=== PATIENT | female | born 1990 | race Caucasian/White ===

== ENCOUNTER 2018-06-02 21:19 | Inpatient (IN) | payer MEDICAID, SELFPAY ==
[2018-06-02 21:59] LABS: HCT 38.3 % (36.0-46.0); HGB 12.7 g/dL (12.0-15.5); Mean Corp. HGB Concentration 33.2 g/dL (32.0-36.0); Mean Corpuscular Hemoglobin 28.7 pg (27.0-33.0); Mean Corpuscular Volume 86.7 fL (80-95); Mean Platelet Volume 11.8 fL (8.0-11.0); Platelet Count 159 x1000/uL (130-400); RBC 4.42 m/cumm (4.00-5.20); RBC Distribution Width 12.2 % (11.7-14.6); White Blood Cell Count 8.49 k/cumm (4.4-10.8)
[2018-06-03] MEDS: AMPICILLIN SODIUM 2 GM in Normal Saline 100 ML IVPB ×2 (13:00→19:00)
[2018-06-04] MEDS: Acetaminophen 325 MG TAB 650 MG PO ×4 (02:34→23:45)
[2018-06-04] MEDS: Ibuprofen 600 MG TAB PO ×4 (02:34→23:46)
[2018-06-04] MEDS: Hamamelis Leaf/Glycerin 100 EACH BOX PR (08:28)
[2018-06-05 07:27] LABS: HCT 28.7 % (36.0-46.0); HGB 9.2 g/dL (12.0-15.5); Mean Corp. HGB Concentration 32.1 g/dL (32.0-36.0); Mean Corpuscular Hemoglobin 28.4 pg (27.0-33.0); Mean Corpuscular Volume 88.6 fL (80-95); Mean Platelet Volume 11.4 fL (8.0-11.0); Platelet Count 141 x1000/uL (130-400); RBC 3.24 m/cumm (4.00-5.20); RBC Distribution Width 12.3 % (11.7-14.6); White Blood Cell Count 8.05 k/cumm (4.4-10.8)
[2018-06-05] MEDS: Acetaminophen 325 MG TAB 650 MG PO (08:17)
[2018-06-05] MEDS: Ibuprofen 600 MG TAB PO (08:18)
[2018-06-05] MEDS: Docusate Sodium 100 MG CAP PO (13:20)
== END 2018-06-05 14:30 | disposition home or self-care (01) | DRG 807 ==
PROVIDERS: Admitting Provider Family Medicine; PCP Family Medicine; Visit Provider Family Medicine
DX: O70.1 Second degree perineal laceration during delivery (principal); Z37.0 Single live birth; O42.12 Full-term premature rupture of membranes, onset of labor more than 24 hours following rupture; Z3A.37 37 weeks gestation of pregnancy; O92.20 Unspecified disorder of breast associated with pregnancy and the puerperium
CPT/HCPCS: 36415; 85027; 86850; 86900; 86901; 59200; J0290; J1580; J3490

== ENCOUNTER 2020-04-21 02:17 | Inpatient (IN) | payer MEDICAID, SELFPAY ==
[2020-04-21] VITALS (13 sets, daily range): BP systolic 114–141; BP diastolic 64–83; PULSE 78–98; RESP 16–20; TEMP 36.5–36.8
[2020-04-21 04:24] LABS: Source Nasopharynx
[2020-04-21 05:02] LABS: Influenza A PCR Negative (Negative); Influenza B PCR Negative (Negative); RSV PCR Negative (Negative)
[2020-04-21 05:18] LABS: COVID-19 PCR Negative (Negative)
--- NOTE | 2020-04-21 07:33 | HPE_ITS ---
Date of service: 04/21/20 Time of Service: 07:33 Assessment and Plan Assessment and plan (1) and not yet delivered in third trimester: Status: Acute Assessment and plan: 29 yo at 41 weeks here in active labor. SROM possibly at 9:30 last night but still with bulging bag. Making steady progress and tolerating labor well. NST cat 1. GBS negative, Rh pos. Plan: - intermittent monitoring - anticipate (2) Anemia affecting in third trimester: Status: Acute Assessment and plan: Hemoglobin 9.8 on admission. Will get H/H. Monitor blood loss after delivery closely. OB-HPI Labor/Delivery History of Present Illness Reason for Visit: LABOR Chief Complaint: Uterine Contractions. BIRD Calculator Estimated Delivery Date Method Current WG Current Estimate 04/14/20 LMP (Certain) 41w 0d Other Estimates 04/13/20 Ultrasound #1 41w 1d Comments: 29 yo at 41w who presented late last night with c/o possible SROM and uterine contractions. SROM around 9:30PM and contractions began soon thereafter. She labored at home for a few hours before coming into the hospital. She has been doing well, breathing through contractions and making steady progress. She endorses good movement, no continues LOF or vaginal bleeding. Her legs are more edematous than they were prenatally but her BP is good this morning and she has no headache or visual changes. FHT cat 1 on admission and this morning. She plans an unmedicated and is interested in a water potentially. History of Present Expected Delivery Route/Plan Narrative: . First child is almost 2. GBS negative. Blood type O pos. Rubella immune. Received tdap and flu. labs with mild anemia. Hemoglobin 9.8 today. Review of Systems All systems reviewed & are unremarkable except as noted in HPI and below PFSH Social History Smoking/Tobacco Use Status: Former Tobacco Use Smoking risk assessment performed?: Yes History History 2 Para 1 Hx # Term Pregnancies 1 Multiple births Hx # Pregnancies Ectopic pregnancies AB induced Hx Number of Living Children AB spontaneous Past Pregnancies Del. Date GA/Weeks # Outcome Route Wgt Sex Labor Lgth Anesthes ia Location Prov Complic Unknown 37 No Successful vaginal 3175.147 g Meds Home Medications and Allergies Home Medications Medication Instructions Recorded Confirmed Type PNV cmb#95-ferrous fumarate-FA 1 tab PO DAILY 06/02/18 04/21/20 History [] Allergies Allergy/AdvReac Type Severity Reaction Status Date / Time No Known Allergies Allergy Unverified 06/02/18 20:49 Exam Physical Exam Vital signs: Temp Pulse Resp BP 36.6 C 83 20 114/67 04/21/20 05:50 04/21/20 07:32 04/21/20 05:50 04/21/20 07:32 Detailed Labor and Delivery Exam Hernandez Score: Cervical Points Exam 0 1 2 3 Dilation Closed 1-2cm 3-4 cm 5-6cm Effacement 0-30% 40-50% 60-70% 80% Consistency Firm Medium Soft Station -3 -2 -1,0 +1,+2 Position Posterior Mid Anterior Contraction Frequency(min): 4-6 Contraction Intensity: Moderate Fetus A Heart Rate Baseline: 125 Monitor Accelerations: 10 X 10 Monitor Decelerations: None Variability: Moderate (6-25 BPM) Presentation: Vertex Categories: Category I Est. Weight: 7.5 g Date of Membrane Rupture: 04/20/20 Time of Membrane Rupture: 21:30 HEENT Exam HEENT Exam: Normal Respiratory Exam Respiratory Exam: Normal Abdominal Exam Abdominal Exam: Normal Extremities Exam Extremities Exam: Abnormal (1+ edema) Skin Exam Skin Exam: Normal Neurological Exam Neurological Exam: Normal Psychiatric Exam Psychiatric Exam: Normal Results Results Group Beta Strep: Negative Blood Type: O+ Rubella Status: Immune Varicella Immunity: Not Tested Risk Assessment Risk for Post- Hemorrhage At Risk?: No Risks Reviewed Risks Reviewed Upon Admission: Yes
--- NOTE | 2020-04-21 08:41 | W.PM.OBNL1 ---
Date of service: 04/21/20 Time of Service: 08:42 Pelvic Exam Dilation: 9 Effacement (%): 100 station: 0 Vaginal Exam Presentation: Vertex Comments: bulging bag Contractions Contraction Frequency(min): 4-6 Fetus A Monitor: External (US) Heart Rate Baseline: 130 Variability: Moderate (6-25 BPM) Categories: Category I Accelerations: 10 X 10 Decelerations: None Assessment and Plan Assessment and plan (1) and not yet delivered in third trimester: Status: Acute Assessment and plan: Making excellent progress. Cat I FHT. Anticipate . Objective Temp Pulse Resp BP 36.6 C 83 20 114/67 04/21/20 07:32 04/21/20 07:32 04/21/20 07:32 04/21/20 07:32 Laboratory Results COVID-19 Source Nasopharynx 04/21/20 04:07 SARS-CoV-2 (PCR) Negative (Negative) 04/21/20 04:07 Influenza Type A (PCR) Negative (Negative) 04/21/20 04:07 Influenza Type B (PCR) Negative (Negative) 04/21/20 04:07 RSV (PCR) Negative (Negative) 04/21/20 04:07 Subjective Interval history since last seen: Doing well. Breathing through contractions. Wants to get into the tub.
[2020-04-21] MEDS: Oxytocin 10 UNITS/ML VIAL IM (10:38)
--- NOTE | 2020-04-21 11:14 | W.OBCONSULT ---
Date of service: 04/21/20 Time of Service: 11:14 History of Present Illness History of Present Illness Chief Complaint: bleeding Consults Consult date: 04/21/20 Requesting physician: Kristen Webster [facility] Social History Smoking/Tobacco Use Status: Former Tobacco Use Smoking risk assessment performed?: Yes History History 2 Para 1 Hx # Term Pregnancies 1 Multiple births Hx # Pregnancies Ectopic pregnancies AB induced Hx Number of Living Children AB spontaneous Past Pregnancies Del. Date GA/Weeks # Outcome Route Wgt Sex Labor Lgth Anesthesia Location Prov Complic Unknown 37 No Successful vaginal 7 lb Results Last Vital Signs Temp 97.9 F 04/21/20 07:32 Pulse 88 04/21/20 11:10 Resp 20 04/21/20 07:32 BP 116/73 04/21/20 11:10 Labs Labs: Laboratory Results - last 24 hr 04/21/20 04/21/20 04:07 04:07 COVID-19 Source Nasopharynx SARS-CoV-2 (PCR) Cancelled Negative Nasopharyn COVID-19 PCR Cancelled Influenza Type A (PCR) Negative Influenza Type B (PCR) Negative RSV (PCR) Negative Ref Test Perform Site Cancelled Procedures Other Procedure Description/Findings: Can last to see patient immediately . She had normal spontaneous vaginal delivery of a viable male . Post delivery placenta delivered spontaneously and was found to be intact. On inspection per primary care providers there is noted to be a small perineal laceration and small left labial laceration. There continue to be a small but steady trickle of bleeding for which I was requested to evaluate. Patient was placed in dorsal lithotomy position. She did use a small amount of nitrous oxide for pain relief. Speculum was inserted anterior lip of the cervix seen and visualized with no laceration. The entirety of the cervix followed with no evidence of cervical laceration. On bimanual examination there is noted to be a small to moderate amount of clot in the lower uterine segment which was expressed. Uterus at that point was firm and ongoing trickle of bleeding stopped. Again perineum and vaginal bender were inspected and found to be hemostatic. Patient was given 600 mcg of oral Cytotec now and again in 8 hours to maintain uterine tonicity particularly in the lower uterine segment. EBL: 100 cc Vital signs: Stable
--- NOTE | 2020-04-21 11:16 | OBVDS_ITS ---
Date of service: 04/21/20 Time of Service: 11:16 OB Labor/ Delivery Information Baby A Delivery Delivery Method: Spontaneaous Presentation: Vertex Vertex Position: Right Occipital Anterior Cord Description-Baby A: 3 Vessels Amniotic Fluid: Clear Estimated Blood Loss: 300 mL Delivery Outcome: Liveborn Infant Transferred: Remains with Mother Note: 29 yo who presented at 41 weeks in active labor after SROM earlier in the evening. course was unremarkable. She progressed steadily with no intervention. She was found to be 9cm dilated and moved soon thereafter to the birthing tub. She began feeling like pushing and was found to be fully dilated at 0921. She pushed well for just over an hour and delivered a liveborn infant male with APGARs of 7/8 over a small first degree perineal laceration in the birthing tub. delivered with the usual hand maneuvers. Infant slow to pink up but had excellent tone, heart rate, and spontaneous respirations. Delayed cord clamping performed for about 30 seconds before cord was cut so infant could be taken to the warmer for vital signs and stimulation due to blue color. HR >100 and color improved with O2 sat >95% by 5 minutes. Patient then moved to the bed. Cord blood obtained. Placenta delivered spont aneously and found to be intact with 3 vessel cord. IM pitocin given. Perineum examined and found to have small first degree hemostatic laceration. She also had a small left labial laceration that was hemostatic. She continued to have a slow trickle of blood despite a firm fundus. No sulcus tears seen. OBGYN called to assist. See Procedure section of note and Dr. Ledbetter's note for details. Found to have clot in lower uterine segment that was removed with improvement in hemostasis. Mom and bonding well. Providers Doctor: Kristen Webster Nurse: Delilah Elias Nurse: La Fult[place] Other: Andreas Suh Labor/Delivery Information Number of Babies in Womb: 1 Steroids Given: None Reason Steroids Not Administered: N/A Group Beta Strep: Negative Antibiotics Administered: No Rubella Status: Immune Blood Type: O+ Varicella Immunity: Not Tested Maternal Complications: None Shoulder Dystocia: No Stages of Labor Onset of Labor Date: 04/20/20 Onset of Labor Time: 21:30 Complete Dilatation Date: 04/21/20 Complete Dilatation Time: 09:21 Labor - Stage 1 Duration: 24 hours and 0 minutes ROM Baby A: 04/20/20 ROM Baby A: 21:30 ROM Total Time- Baby A: [id number] Delivery Date-Baby A: 04/21/20 Infant Delivery Time-Baby A: 10:24 Labor Stage 2 Duration: 1 hours and 3 minutes Placenta Delivery Date-Baby A: 04/21/20 Placenta Delivery Time-Baby A: 10:37 Labor-Stage 3 Duration: 13 minutes Total Length of Labor-Baby A: 12 hours and 54 minutes Placenta Status: Delivered Baby A Gender: Male Gestational Status: Term (39-41.6 wks) Gestational Age in Weeks/Days: 41 Weeks and 0 Days Weight Comment: pending Score-1 Minute Interval(Baby A) Heart Rate-1 minute: 100 BPM or Greater Respiratory Effort- 1 minute: Slow Respiration/Weak Cry Muscle Tone-1 minute: Active Movement Reflex Response-1 minute: Prompt Response Color-1 minute: Pallor or Cyanosis Total Score-1 minute: 7 Score-5 Minute Interval(Baby A) Heart Rate- 5 minute: 100 BPM or Greater Respiratory Effort-5 minute: Spontaneous/Strong Cry Muscle Tone-5 minute: Active Movement Reflex Response-5 minute: Prompt Response Color-5 minute: Pallor or Cyanosis Total Score- 5 minute: 8 Procedure Procedures: Control of Hemorrhage (Slow trickle of bleeding noted after delivery of placenta. Pitocin IM given. Bleeding continued. Fundus firm. Small first degree perineal laceration and left labial laceration noted, both hemostatic. No sulcus tears seen. ) , Dr. Ledbetter from OBGYN called. Speculum and bimanual exam performed. Cervix intact. Clot evacuated from lower uterine segment and bleeding stopped.
[2020-04-21] MEDS: miSOPROStol 200 MCG TAB 600 MCG PO (11:30)
[2020-04-21] MEDS: Hamamelis Leaf/Glycerin 100 EACH BOX PR (12:30)
[2020-04-21] MEDS: Ibuprofen 600 MG TAB PO ×2 (13:00→19:11)
[2020-04-22 07:07] LABS: HCT 33.1 % (36.0-46.0); HGB 10.6 g/dL (11.2-15.7); MCH 25.9 pg (27.0-33.0); MCV 80.7 fL (80-95); Platelet Count 157 10^3/uL (130-400); RDW 13.4 % (11.7-14.6); RDW-SD 39.1 fL; WBC 7.56 10^3/uL (4.4-10.8)
--- NOTE | 2020-04-22 08:55 | DSE_ITS ---
Date of service: 04/22/20 Time of Service: 08:55 DS: Diagnosis Discharge Diagnosis (1) and not yet delivered in third trimester: Status: Acute (2) Anemia affecting in third trimester: Status: Acute Discharge Plan Disposition Patient Disposition: HOME Condition: Good Discharge Details Reason For Visit: LABOR Admit Date/Time: 04/21/20 02:18 Admit Provider: Andreas Suh Attending Provider: Andreas Suh Primary Care Provider: Georgina Kamara Hospital Course Hospital Course: 29 yo >2 who delivered a baby boy at 41 weeks via over a small first degree perineal laceration and left labial laceration that did not require repair. Labor and delivery unremarkable aside from immediate bleeding caused by a clot in the lower uterine segment that was evacuated with resolution of bleeding. she did well. She was eating/drinking, voiding/stooling without difficulty. She reported she was well. Mood was good. Experiencing mild and expected lochia and uterine cramping. Home Meds and New Rx's Prescriptions: New acetaminophen [Tylenol] 325 mg Tablet 650 mg PO Q4H PRN PRNQty: 0 RF: 0 ibuprofen [IBU] 600 mg Tablet 600 mg PO Q6H PRN PRNQty: 0 RF: 0 ferrous sulfate [FerrouSul] 325 mg (65 mg iron) tablet 325 mg PO DAILY 90 Days Qty: 90 RF: 0 Continued PNV cmb#95-ferrous fumarate-FA [] 28 mg iron- 800 mcg Tablet 1 tab PO DAILY RF: 0 Discharge Instructions Stand Alone Forms: BC Instructions, BC Post Vaginal Deliver Activity:: Activity as Tolerated Equipment/Supplies:: No Equipment Needed Diet:: As Tolerated Discharge Orders Discharge Orders: Discharge Order (Routine); Ordered 04/22/20 Ordered By: Kristen Webster OB:DS Summary Summary Vaginal Delivery Method: Spontaneaous Episiotomy Description: None Contraception Discussed Contraception Discussed: Yes Contraceptive Plan: Vasectomy, [place] Gender-Baby A: Male weight: 3680 g Status at Discharge Functional status at discharge: independent ambulation Overall status at discharge: patient is back to baseline Mental Status: mental status grossly normal Speech and Movement: speech and movement normal Mood: congruent mood Affect: normal affect Exam Physical Exam Vital signs: Temp Pulse Resp BP 36.5 C 81 18 115/64 01/01/21 21:00 04/21/20 21:00 04/21/20 21:00 04/21/20 21:00 Constitutional Constitutional: no acute distress Respiratory Exam Respiratory Exam: Normal Cardiovascular Exam Cardiovascular Exam: Normal Fundal Exam Fundus: Below Umbilicus and Firm Extremities Exam Extremity Exam: Edema (trace) Skin Exam Skin Exam: Normal Neurological Exam Neurological Exam: Normal Psychiatric Exam Psychiatric Exam: Normal [facility] Social History Smoking/Tobacco Use Status: Former Tobacco Use Smoking risk assessment performed?: Yes History History 2 Para 1 Hx # Term Pregnancies 1 Multiple births Hx # Pregnancies Ectopic pregnancies AB induced Hx Number of Living Children AB spontaneous Past Pregnancies Del. Date GA/Weeks # Outcome Route Wgt Sex Labor Lgth Anesthes ia Location Prov Complic Unknown 37 No Successful vaginal 3175.147 g DS: Data Vitals/I&O Vitals and I&O: Vital Signs Temperature 36.5 C 04/21/20 21:00 Pulse 81 04/21/20 21:00 Pulse Rhythm Regular 04/21/20 21:00 Respiratory Rate 18 04/21/20 21:00 Blood Pressure 115/64 04/21/20 21:00 Blood Pressure Mean 81 04/21/20 21:00 Pain Level 3 04/21/20 12:40 Intake & Output 04/21/20 04/21/20 04/22/20 11:59 23:59 11:59 Output Total 400 / 400 Balance -400 / -400 Weight 99.79 kg Output: Urine 400 / 400 Other: Urine Color Yellow Pale Data Completed and Pending Labs on day of discharge: Labs from last 24 hours 04/22/20 04/21/20 06:55 04:07 WBC 7.56 RBC 4.10 Hgb 10.6 L Hct 33.1 L MCV 80.7 MCH 25.9 L MCHC 32.0 RDW 13.4 Plt Count 157 MPV 12.0 H SARS-CoV-2 (PCR) Cancelled Nasopharyn COVID-19 PCR Cancelled Ref Test Perform Site Cancelled
[2020-04-22] MEDS: Ibuprofen 600 MG TAB PO (09:04)
[2020-04-22 09:10] VITALS: BP 122/82; PULSE 102; RESP 16; TEMP 36.7; O2SAT 95
== END 2020-04-22 12:15 | disposition home or self-care (01) | DRG 768 ==
PROVIDERS: PCP Family Medicine; Visit Provider Family Medicine
DX: O99.02 Anemia complicating childbirth (principal); Z37.0 Single live birth; D64.9 Anemia, unspecified; O70.0 First degree perineal laceration during delivery; Z3A.41 41 weeks gestation of pregnancy
CPT/HCPCS: 36415; 85027; U0003; J2590